=== PATIENT | male | born 1990 | race Caucasian/White ===

== ENCOUNTER 2016-07-01 02:01 | Emergency (ER) | payer OTHER ==
[~2016-07-01] VITALS: Ht 185.4 cm; Wt 79.4 kg
[~2016-07-01 02:01] MED LIST: ACETAMINOPHEN325 M1 PO; NOHOMEMEDICATIONS; NORCO 5-325 TA1 EACH PO; PENICILLIN V P500 MG PO; PENICILLIN VK250 MG PO; TRAMADOL 50 MG50 MG PO
[2016-07-01] MEDS ORDERED: NORCO 5-325 TA1 EACH PO (02:23)
== END 2016-07-01 02:40 | disposition home or self-care (01) ==
LOC: ER 02:01
DX: S39.012A Strain of muscle, fascia and tendon of lower back, initial encounter (principal); M54.5 Low back pain; Z88.8 Allergy status to other drugs, medicaments and biological substances; Z88.5 Allergy status to narcotic agent; X58.XXXA Exposure to other specified factors, initial encounter; Y93.89 Activity, other specified; Y92.89 Other specified places as the place of occurrence of the external cause; Y99.0 Civilian activity done for income or pay

== ENCOUNTER 2017-01-01 19:15 | Emergency (ER) | payer OTHER ==
[~2017-01-01] VITALS: Ht 185.4 cm; Wt 81.7 kg
[2017-01-01] MEDS ORDERED: DICLOFENAC SODI75 MG PO (19:59)
== END 2017-01-01 20:03 | disposition home or self-care (01) ==
LOC: ER 19:15
DX: G89.29 Other chronic pain (principal); M25.552 Pain in left hip; M25.551 Pain in right hip; Z88.6 Allergy status to analgesic agent; F17.210 Nicotine dependence, cigarettes, uncomplicated; F10.99 Alcohol use, unspecified with unspecified alcohol-induced disorder; Z88.5 Allergy status to narcotic agent

== ENCOUNTER 2017-03-03 04:37 | Emergency (ER) | payer OTHER ==
[~2017-03-03] VITALS: Ht 185.4 cm; Wt 81.7 kg
[~2017-03-03 04:37] MED LIST changes: +DICLOFENAC SODI75 MG PO
[2017-03-03] MEDS ORDERED: OXCARBAZEPINE300 M1 PO (04:51)
[2017-03-03] MEDS ORDERED: TRAZODONE HCL100 MG PO (04:51)
== END 2017-03-03 05:34 | disposition home or self-care (01) ==
LOC: ER 04:37
DX: Z76.5 Malingerer [conscious simulation] (principal); M25.551 Pain in right hip; G89.29 Other chronic pain; M54.9 Dorsalgia, unspecified; F17.210 Nicotine dependence, cigarettes, uncomplicated; Z88.5 Allergy status to narcotic agent; W18.39XA Other fall on same level, initial encounter; Y93.01 Activity, walking, marching and hiking; Y92.89 Other specified places as the place of occurrence of the external cause; Y99.8 Other external cause status